=== PATIENT | female | born 1965 | race Caucasian/White ===

== ENCOUNTER → 2020-01-11 | Outpatient (CLI) | payer BC ==
--- NOTE | 2020-01-11 17:48 | RAD ---
DATE: 01/11/2020 EXAM: BREAST RIGHT HISTORY: Recall from screening mammogram for right breast masses. COMPARISON: Screening mammogram 01/03/2020 TECHNIQUE: Grayscale and color Doppler ultrasound images of the outer right breast in area of concern FINDINGS: At 8:00, 5 cm from the nipple there is an ovoid hypoechoic mass with microlobulated margins. No internal vascularity. This measures 4 x 3 x 2 mm. At 11:00 6 cm from nipple there is an ovoid hypoechoic mass measuring 3 x 3 x 2 mm. This has smooth margins. No abnormal lymph nodes in the axilla. IMPRESSION: 1. Mildly suspicious microlobulated hypoechoic mass at 8:00, 5 cm the nipple. Recommend ultrasound-guided biopsy of the mass at 8:00. 2. Probably benign hypoechoic mass at 11:00, 6 cm from the nipple. Recommend 6 month follow-up ultrasound. BI-RADS CATEGORY: 4 SUSPICIOUS ABNORMALITY- BIOPSY SHOULD BE CONSIDERED RECOMMENDED FOLLOW-UP: BIO BIOPSY RECOMMENDED PQRS compliance statement: Patient information was entered into a reminder system with a target due date for the next mammogram. Mammography is a sensitive method for finding small breast cancers, but it does not detect them all and is not a substitute for careful clinical examination. A negative mammogram does not negate a clinically suspicious finding and should not result in delay in biopsying a clinically suspicious abnormality. "Our facility is accredited by the [employer] Mammography Program."
== END ==
LOC: US 13:57
PROVIDERS: ATTEND Obstetrics & Gynecology
DX: R92.8 Other abnormal and inconclusive findings on diagnostic imaging of breast (principal); N63.13 Unspecified lump in the right breast, lower outer quadrant; N63.11 Unspecified lump in the right breast, upper outer quadrant
CPT/HCPCS: 76641

== ENCOUNTER → 2020-08-08 | Outpatient (CLI) | payer BC ==
--- NOTE | 2020-08-08 13:27 | RAD ---
EXAM: Right breast sonogram. HISTORY: 55-year-old female presents for follow-up evaluation of findings within the right breast dem onstrated on a sonogram performed 01/11/2020. TECHNIQUE: Sonographic imaging of the right breast and axilla was performed. COMPARISON: 01/09/2020. FINDINGS: There has been no change in a 3 mm suspected complicated cyst or benign fibrocystic lesion at the 11:00 position 6 cm from the nipple. The previously demonstrated lesion at the 8:00 position i s no longer seen. There is a stable right axillary lymph node with borderline prominent cortex measur ing 1.5 cm in long axis. This is likely physiologic given interval stability. No new lesion is seen. IMPRESSION: 1. Stable benign cyst or fibrocystic lesion at the 11:00 position and resolution of a previously demo nstrated finding at the 8:00 position. 2. Stable right axillary lymph node. 3. BI-RADS Category 2: Benign finding(s). The patient will be due for bilateral mammography in 5 eunice hs according to a previously established mammography interval. Electronically signed by: Jil Ayala MD (08/08/2020 1:24 PM) [id number]
== END ==
LOC: US 12:54
PROVIDERS: ATTEND Physician Assistant
DX: D48.61 Neoplasm of uncertain behavior of right breast (principal)
CPT/HCPCS: 76641